=== PATIENT | female | born 1945 | race Caucasian/White ===

== ENCOUNTER → 2021-12-08 | Day surgery (SDC) | payer OTHER ==
[~2021-12-08] VITALS: Ht 165.1 cm; Wt 90.7 kg
[~2021-12-08] MED LIST: CHILDREN'S ASPI81 M1 PO; EMERGEN-C 1,01000 MG PO; FISH OIL 1,0001 EAC9 PO; GLIMEPIRIDE4 MG PO; GLUMETZA1000 PO; INVOKANA100 MG PO; METFORMIN HCL1000 MG PO; METOPROLOL TART25 MG PO; PRINIVIL40 MG PO; SIMVASTATIN40 MG PO; VITAMIN D325 MC5 PO; ZINC30 MG PO
--- NOTE | ~2021-12-08 | O ---
[facility] [place] [address] OPERATIVE REPORT Name: HOUSTON SUMMERS Room #: REG [facility].#: [id number] Admission: 12/08/21 Attend Phys: Arcadio Villaseñor MD Discharge: Date of : 41 Report #: [id number] THIS REPORT FOR: cc: FAM - Family physician unknown FAM - Family physician unknown Arcadio Villaseñor MD ~ cc: SOLEDAD Alford, Arcadio Eden MD DATE OF SERVICE: 12/08/2021 PREOPERATIVE DIAGNOSIS: Tumor of left medial canthus, upper lid, lower lid and bridge of nose and orbit. POSTOPERATIVE DIAGNOSIS: Tumor of left medial canthus, upper lid, lower lid and bridge of nose and orbit with tumor in lacrimal sac. PROCEDURE: Excision of tumor of left upper lid, left medial canthus, left lower lid, bridge of nose and orbit with frozen sections, myocutaneous flap repair of defect, full thickness skin graft from right supraclavicular area to left lower lid. SURGEON: Arcadio Villaseñor MD FINANCIAL COMPLIANCE EXAMINER: None. ANESTHESIA: General. COMPLICATIONS: None. INDICATIONS FOR SURGERY: This pleasant 76-year-old woman has an obviously neglected tumor in her left medial upper lid that appears to be a basal cell carcinoma. It extends across the upper lid, up into her brow, across the bridge of her nose, onto her lower lid and appears to potentially be fixed to periosteum. She presents today for excision of this lesion with directed frozen sections, realizing that the tumor bed is too large to be able to freeze the entire margin. Informed consent was obtained to include, but not limited to, the potential risk for loss of vision, bleeding, infection, and almost certain need for further surgery or treatment. DESCRIPTION OF PROCEDURE: The patient was taken to the operating room where general anesthesia was administered. The left medial canthal area, the left upper lid, the brow, the bridge of the nose, the lower lid were all anesthetized with Xylocaine with epinephrine mixed with Marcaine and Wydase. An additional aliquot of the same anesthetic was then administered to the right supraclavicular area. The patient was subsequently prepped and draped in the usual sterile fashion. [address] [address] OPERATIVE REPORT Name: HOUSTON SUMMERS Room #: REG [facility].#: [id number] Admission: 12/08/21 Attend Phys: Arcadio Villaseñor MD Discharge: Date of : 41 Report #: [id number] A fine tip skin marking pen was then utilized to outline the lesion bringing it across the left upper lid margin, up to the base of the brow, across to the bridge of the nose, down the nose, over the area of the anterior lacrimal sac, down across the area of the lower lacrimal sac and then back up to the medial left lower lid. The incisions were then made with a 15C blade and relatively brisk bleeding ensued as one would have anticipated. The dissection was accomplished primarily sharply because the lesion was indeed fixed to the underlying periosteum from the very beginning. The dissection was then carried out more deeply and the tumor extended into the anterior orbital fat medially. The dissection inferiorly involved resection of the medial canthal tendon. The lesion also extended into the lacrimal sac. The specimen was placed on a back table for permanent section analysis. The sampling of deep tissue medially was taken in addition to the medial skin margin. The quality of her skin was very sun damaged, so it was difficult to ascertain good skin anywhere in the field. The pathologist snap froze those tissues and found that both appeared to be negative. With the understanding that the tumor extended into orbital fat and it also extended into the lacrimal sac, that she would need external beam radiation, so no additional frozen sections were taken. A myocutaneous flap was then developed laterally to be rotated medially and to allow a medial canthopexy to be accomplished to reattach the medial canthal tendons. The relaxing incision made and the dissection accomplished drawing the skin muscle flap medially and posteriorly. Hemostasis was then re-achieved. The flap was secured deep with interrupted Vicryl sutures that went through the periosteum, but in all likelihood, this periosteum was involved with the tumor. That being said, it did hold the sutures and the flap was advanced well. More superficially, it was closed in a relaxed skin tension line with buried 6-0 Vicryl sutures deep and then a 6-0 plain gut suture in the skin. The residual defect at this point was then outlined in the right supraclavicular area for full-thickness skin graft. Prior to migration of the myocutaneous flap, the defect measured over 4 cm in dimension. The full-thickness skin graft was then outlined with a fine tip skin marking pen and the incision was made with a 15C blade. The skin graft was then harvested with thin section techniques. It was then placed on the back table. That donor site was then closed with multiple layers of 5-0 Vicryl sutures deep and then a final closure of 5-0 nylon utilizing a running stitch. It then had an Op-Site placed over it. The full thickness skin graft was then defatted and it was secured to its bed focused in the medial canthus onto the bridge of the nose and the lower lid. It was secured with cardinal bites of 7-0 Vicryl sutures and then a final closure of 6-0 plain gut sutures. Erythromycin ointment was then placed on the skin [facility] [address] [place] [address] OPERATIVE REPORT Name: HOUSTON SUMMERS Room #: REG [facility] M.R.#: [id number] Admission: 12/08/21 Attend Phys: Arcadio Villaseñor MD Discharge: Date of : 41 Report #: [id number] graft followed by Telfa pad pledgets. A larger Telfa pad cut in the shape of an iPad was then placed over this followed by 2 iPads, which were held in place with silk tape and Mastisol. The patient was subsequently transported to the recovery area having tolerated the procedure well with no anesthetic or operative complications being noted. It is anticipated that she will require external beam radiation. By: [id number] Arcadio Villaseñor MD /nt
[2021-12-08 09:00] VITALS: BP 145/81
--- NOTE | 2021-12-09 13:08 | PATH ---
[address] [address] PATHOLOGY RPT PROCEDURE Name: HOUSTON LEE Room #: REG [facility].#: [id number] Admission: 12/08/21 Date of : 41 Discharge: Report #: [id number] Path Case #: [id number] [facility] Accession Number: [id number] . 01 Material submitted: . PART A: lid - LEFT UPPER LID LESION DEEP SUPERIOR MARGIN- FS. Modifiers: left, upper PART B: lid - LEFT UPPER LID LESION MEDIAL SKIN MARGIN- FS. Modifiers: left, upper PART C: lid - LEFT UPPER LID LESION AND FAT IN ORBITAL FOSSA. Modifiers: left, upper . 01 Clinical history: . EXCISION LESION EYE LARGE TUMOR LIKELY BCCA . 02 Frozen section diagnosis: . FROZEN SECTION DIAGNOSIS: (Randy Frost M.D.): . FSA1. Left upper lid lesion, deep margin: - Skeletal muscle, negative for malignancy. . FSB1. Left upper lid, medial margin: - Negative. . This report was conveyed to Dr. Villaseñor by Dr. Frost at [facility] on 12/08/21 at 9:40 a.m. and a written report is placed in the patient's chart. . Frozen section performed at [facility], [facility] , [place] [address]. . . FROZEN SECTION GROSS DESCRIPTION: Part A. Labeled with the patient's name and "left upper lid lesion, deep superior margin" consists of a skin fragment which measures 0.6 x 0.4 x 0.4 cm and is received fresh. Intraoperative consultation is performed on FSA1 and then the tissue is subsequently submitted in formalin in block A1. . Part B. Labeled with the patient's name and "left upper lid lesion, medial skin margin" consists of a skin ellipse received fresh which measures 0.9 x 0.4 x 0.4 cm. The final margin is designated by the surgeon. The specimen is entirely submitted in FSB1 and subsequently in block B1 in formalin. (COLIN/hannah; 12/08/2021) GEORGE/JANNAQ . [address] [address] PATHOLOGY RPT PROCEDURE Name: HOUSTON LEE Room #: REG [facility] M.R.#: [id number] Admission: 12/08/21 Date of : 41 Discharge: Report #: [id number] Path Case #: [id number] Diagnosis: A. Left upper lid lesion, deep to superior margin, excision: - Fragment of skeletal muscle and neural tissue. - Negative for malignancy. . B. Left upper lid lesion, medial, skin margin: - Skin with mild actinic changes and solar elastosis. - Negative for malignancy. . C. Left upper lid lesion and orbital fat, excision: - BASAL CELL CARCINOMA, NODULAR TYPE. - The tumor is present at one side margin and focally at the base of the skin excision. - THE FAT FROM THE ORBITAL FOSSA IS ALSO POSITIVE FOR BASAL CELL CARCINOMA. . (ANK:zeeshan; 12/09/2021) MBR 12/09/2021 1107 Local . 02 Electronically signed: . Yadira Frost MD, Pathologist NPI- [id number] . 01 Gross description: . A. SEE FROZEN SECTION GROSS DESCRIPTION. . B. SEE FROZEN SECTION GROSS DESCRIPTION. . C. The specimen is received in formalin, labeled "Houston Lee, left upper lid lesion and fat in orbital fossa" and consists of tear-drop shaped, conical skin excision (2.1 x 2.2, excised to a depth of 1.2 cm) which is focally surfaced with motta smooth skin that displays a central motta-brown to pink depressed ulcerated lesion (1.8 x 1.7 cm) that comes to within less than 0.1 cm from the nearest surgical margin (inked black). The ulcer displays a full thickness defect (surrounding tissue over inked red, 0.2 x 0.1 cm). This portion of the specimen is radially sectioned and submitted entirely in C1-C4. Also received in the same container is a diego-motta rubbery irregular tissue (1.1 x 0.3 x 0.3 cm). This portion of the specimen is inked green, serially sectioned and submitted entirely in C5. (PENOBSCOT; 12/08/2021) DKA/LBQ 12/09/2021 1047 Local . 02 Pathologist provided ICD-10: C44.1191, L57.8 . 02 CPT . [address] [address] PATHOLOGY RPT PROCEDURE Name: HOUSTON LEE Room #: REG [facility]..#: [id number] Admission: 12/08/21 Date of : 41 Discharge: Report #: [id number] Path Case #: [id number] Specimen Comment: A courtesy copy of this report has been sent to [phone] Specimen Comment: Report sent to Performed at: [address], [place] [id number] MD Gabriele Lima MD Phone: [phone] Performed at: [address] [id number] MD Yadira Frost MD Phone: [phone]
== END | disposition home or self-care (01) ==
LOC: OR 06:37
PROVIDERS: ATTEND Ophthalmology
DX: C44.1191 Basal cell carcinoma of skin of left upper eyelid, including canthus (principal); L57.8 Other skin changes due to chronic exposure to nonionizing radiation; I10 Essential (primary) hypertension; E11.9 Type 2 diabetes mellitus without complications; I25.10 Atherosclerotic heart disease of native coronary artery without angina pectoris; E78.00 Pure hypercholesterolemia, unspecified; I48.91 Unspecified atrial fibrillation; Z98.890 Other specified postprocedural states; Z79.899 Other long term (current) drug therapy; Z79.01 Long term (current) use of anticoagulants; Z95.1 Presence of aortocoronary bypass graft; Z90.710 Acquired absence of both cervix and uterus; Z98.41 Cataract extraction status, right eye; Z98.42 Cataract extraction status, left eye; Z20.822 Contact with and (suspected) exposure to COVID-19
CPT/HCPCS: 50010; 50101; 50386; 50398; 51636; 56527; 56528; 56531; 62110; 62850; 64037; 70005